=== PATIENT | male | born 2000 | race American Indian/Alaskan Native ===

== ENCOUNTER 2018-08-19 11:58 | Emergency (ER) | payer SELFPAY ==
[2018-08-19] MEDS ORDERED: ZOFRAN ODT PO ONE (13:10)
--- NOTE | 2018-08-19 13:10 | Emergency Department Report ---
ED Abdominal Pain HPI - General Chief Complaint: Nausea/Vomiting/Diarrhea Stated Complaint: STOMACH PAIN/NAUSEA/VOMITING Time Seen by Provider: 08/19/18 12:56 Source: patient Mode of arrival: Ambulatory Limitations: No Limitations - History of Present Illness MD Complaint: abdominal pain -: Gradual, days(s) (1) Location: diffuse Severity: mild Quality: cramping Consistency: constant Improves With: nothing Worsens With: eating Context: possible food poisoning, sick contacts - Related Data Previous Rx's Medication Instructions Recorded Last Taken Type Promethazine [Phenergan TAB] 25 mg PO Q6HR PRN #10 tab 08/19/18 Unknown Rx Allergies Allergy/AdvReac Type Severity Reaction Status Date / Time No Known Allergies Allergy Unverified 08/19/18 12:05 ED Review of Systems ROS: Stated complaint: STOMACH PAIN/NAUSEA/VOMITING Other details as noted in HPI Comment: All other systems reviewed and negative Constitutional: fever, malaise ENT: congestion Respiratory: cough Cardiovascular: denies: chest pain Gastrointestinal: abdominal pain, nausea, vomiting, diarrhea ED Past Medical Hx - Past Medical History Previous Medical History?: No - Surgical History Past Surgical History?: No - Social History Smoking Status: Current Every Day Smoker Substance Use Type: Alcohol, Marijuana Other Social History: unemployed, lives with mother - Medications Home Medications: Home Medications Medication Instructions Recorded Confirmed Last Taken Type Promethazine [Phenergan TAB] 25 mg PO Q6HR PRN #10 tab 08/19/18 Unknown Rx ED Physical Exam - General Limitations: No Limitations General appearance: alert, in no apparent distress - Head Head exam: Present: atraumatic, normocephalic - Eye Eye exam: Present: normal appearance - ENT ENT exam: Present: mucous membranes moist - Neck Neck exam: Present: normal inspection - Respiratory Respiratory exam: Present: normal lung sounds bilaterally. Absent: respiratory distress, wheezes, rhonchi - Cardiovascular Cardiovascular Exam: Present: regular rate, normal rhythm, normal heart sounds. Absent: bradycardia, tachycardia, systolic murmur, diastolic murmur, rubs, gallop - GI/Abdominal GI/Abdominal exam: Present: soft, normal bowel sounds. Absent: distended, tenderness, guarding, rebound - Rectal Rectal exam: Present: deferred - Extremities Exam Extremities exam: Present: normal inspection - Back Exam Back exam: Present: normal inspection - Neurological Exam Neurological exam: Present: alert, oriented X3 - Psychiatric Psychiatric exam: Present: normal affect, normal mood - Skin Skin exam: Present: warm, dry, intact, normal color. Absent: rash ED Course Vital Signs 08/19/18 12:02 Temperature 97.9 F Pulse Rate 69 Respiratory 16 Rate Blood Pressure 132/71 O2 Sat by Pulse 100 Oximetry ED Medical Decision Making - Medical Decision Making Josse presents with stomach upset, vomiting diarrhea. Differential diagnosis includes cannabis hyperemesis syndrome, food poisoning, viral syndrome. He did have a preceding URI symptoms. Recommended supportive care rest and hydration. Prescription for promethazine Critical care attestation.: If time is entered above; I have spent that time in minutes in the direct care of this critically ill patient, excluding procedure time. ED Disposition Clinical Impression: Viral syndrome Disposition: -01 TO HOME OR SELFCARE Is pt being admited?: No Does the pt Need Aspirin: No Condition: Stable Instructions: Abdominal Pain (ED), Acute Nausea and Vomiting (ED) Prescriptions: Promethazine [Phenergan TAB] 25 mg PO Q6HR PRN #10 tab PRN Reason: Nausea Referrals: [facility] [Outside] - 3-5 Days Time of Disposition: 13:09
[2018-08-19 13:19] VITALS: BP 122/74
== END 2018-08-19 13:16 | disposition home or self-care (01) ==
LOC: ED 11:58
DX: B34.9 Viral infection, unspecified (principal); F17.200 Nicotine dependence, unspecified, uncomplicated; F12.10 Cannabis abuse, uncomplicated
CPT/HCPCS: 99282; Q0162